=== PATIENT | female | born 1970 | race Caucasian/White ===

== ENCOUNTER → 2017-02-27 | Outpatient (CLI) | payer BC ==
--- NOTE | 2017-02-28 09:57 | MM ---
Reason for exam: screening (asymptomatic). Last mammogram was performed 2 years ago. History: Family history of breast cancer in paternal grandmother. Benign excisional biopsy of the right breast, 2010. Took hormonal contraceptives for 5 years. Physical Findings: A clinical breast exam by your physician is recommended on an annual basis and results should be correlated with mammographic findings. MG Screening Mammo w CAD Bilateral CC and MLO view(s) were taken. Prior study comparison: February 27, 2015, left breast MG work up mamm w CAD LT. February 16, 2015, bilateral MG screening mammo w CAD. The breast tissue is heterogeneously dense. This may lower the sensitivity of mammography. Finding: There is a 25 mm mass in the upper outer quadrant of the right breast. There is a chronic nodularity bilaterally. ASSESSMENT: Incomplete: need additional imaging evaluation, BI-RAD 0 RECOMMENDATION: Ultrasound of the right breast. [facility] will attempt to contact patient to return for ultrasound.
== END | disposition home or self-care (01) ==
LOC: RADMAMWWP 10:58
PROVIDERS: ATTEND Internal Medicine
DX: Z12.31 Encounter for screening mammogram for malignant neoplasm of breast (principal)

== ENCOUNTER → 2017-03-05 | Outpatient (CLI) | payer BC ==
--- NOTE | 2017-03-05 11:59 | P.STRESS ---
- Stress Test Note Stress Test Results/Findings: Exam Performed: stress test Exam Date: 03/05/17 Height: 5 ft 7 in Weight: 90.718 kg Protocol: adilene Stage: 3 Duration of Exercise: 9:00 Resting Heart Rate: 77 Resting Blood Pressure: 107/85 Maximum Achieved Heart Rate: 167 Maximum Achieved Blood Pressure: 195/96 85% PMHR: 149 100% PMHR: 175 METS: 10.1 Technologist Comment: Stress Test Results/Findings: Baseline rhythm is sinus mechanism, normal axis and intervals minor nonspecific T-wave changes. The patient exercised on Adilene protocol for 9 minutes reaching a peak rate of 167 bpm which is equal to 97% maximum predicted heart rate. The test was terminated secondary to fatigue there was no chest pain. EKG monitoring shows no acute ST segment changes, occasional PVCs were noted. Impression: 1. Average exercise tolerance. 2. Occasional PVCs. 3. Normal EKG response to exercise with no evidence of exercise induced ischemia.
--- NOTE | 2017-03-06 11:12 | ECHOF ---
Referral Reason:R07.89 chest pressure MEASUREMENTS -------- HEIGHT: 170.2 cm WEIGHT: 90.7 kg BP: 137/84 RVIDd: 2.5 cm (< 3.3) IVSd: 1.0 cm (0.6 - 1.1) LVIDd: 4.1 cm (3.9 - 5.3) LVPWd: 1.2 cm (0.6 - 1.1) IVSs: 1.0 cm LVIDs: 3.2 cm LVPWs: 1.1 cm LAESV Index (A-L): 16.30 ml/m Ao Diam: 2.7 cm (2.0 - 3.7) AV Cusp: 1.9 cm (1.5 - 2.6) LA Diam: 2.1 cm (2.7 - 3.8) MV EXCURSION: 20.499 mm (> 18.000) MV EF SLOPE: 44 mm/s (70 - 150) EPSS: 0.6 cm MV E Donavon: 0.52 m/s MV DecT: 249 ms MV A Don[place]on: 0.63 m/s MV E/A Ratio: 0.83 RAP: 5.00 mmHg RVSP: 18.65 mmHg FINDINGS -------- Sinus rhythm. This was a technically adequate study. The left ventricular size is normal. Overall left ventricular systolic function is normal with, an EF between 55 - 60 %. The right ventricle is normal in size and function. Normal LA size by volume 22+/-6 ml/m2. The right atrium is normal in size. The aortic valve is trileaflet, and appears structurally normal. No aortic stenosis or regurgitation. There is trace mitral regurgitation. Mild prolapse of the posterior mitral valve leaflet. Trace tricuspid regurgitation present. There is no evidence of pulmonary hypertension. The right ventricular systolic pressure, as measured by Doppler, is 18.65mmHg. There is no pulmonic regurgitation present. The aortic root size is normal. Normal inferior vena cava with normal inspiratory collapse consistent with estimated right atrial pressure of 5 mmHg. There is no pericardial effusion. CONCLUSIONS -------- 1. Sinus rhythm. 2. There is no pulmonic regurgitation present. 3. The aortic root size is normal. 4. There is no pericardial effusion. 5. This was a technically adequate study. 6. Overall left ventricular systolic function is normal with, an EF between 55 - 60 %. 7. Normal LA size by volume 22+/-6 ml/m2. 8. The aortic valve is trileaflet, and appears structurally normal. No aortic stenosis or regurgitation. 9. There is trace mitral regurgitation. 10. Mild prolapse of the posterior mitral valve leaflet. 11. Trace tricuspid regurgitation present. 12. There is no evidence of pulmonary hypertension. LAB INSTRUCTOR: Adarsh Bassett RDCS
== END | disposition home or self-care (01) ==
LOC: RADNMMAIN 10:57
PROVIDERS: ATTEND Internal Medicine
DX: I08.1 Rheumatic disorders of both mitral and tricuspid valves (principal); R07.89 Other chest pain
CPT/HCPCS: 93017; 93306

== ENCOUNTER → 2017-03-12 | Outpatient (CLI) | payer BC ==
--- NOTE | 2017-03-12 10:54 | USB ---
Reason for exam: additional evaluation requested from abnormal screening. History: Family history of breast cancer in paternal grandmother. Benign excisional biopsy of the right breast, 2010. Took hormonal contraceptives for 5 years. US Breast Workup Limited RT Right breast ultrasound demonstrates a 2.4 x 1.3 x 2.7cm oval, lobular, solid, hypoechoic lesion at 10 o'clock for which a biopsy is recommended, a 0.6 x 0.4 x 0.5cm oval, lobular, solid, hypoechoic lesion at 10 o'clock for which a biopsy is recommended and a 0.8 x 0.6 x 0.8cm oval, cystic lesion at 12 o'clock. These results were verbally communicated with the patient and result sheet given to the patient on 03/12/17. ASSESSMENT: Suspicious, BI-RAD 4 RECOMMENDATION: Ultrasound core biopsy of the right breast. (x 2) Called with mammographic findings and has scheduled an appointment for the patient for 03/17/17 at 9:[address] Coelho. PRELIMINARY REPORT CALLED AND FAXED TO DR. COELHO ON 03/12/17/TMP.
== END | disposition home or self-care (01) ==
LOC: RADUSWWP 09:46
PROVIDERS: ATTEND Internal Medicine
DX: R92.8 Other abnormal and inconclusive findings on diagnostic imaging of breast (principal)

== ENCOUNTER → 2017-03-26 | Day surgery (SDC) | payer BC ==
[2017-03-26 12:52] VITALS: RESP 16; BMI 31.3
[2017-03-26 14:38] VITALS: BP 125/72; PULSE 66; TEMP 98.2
--- NOTE | 2017-03-26 16:33 | USB ---
EXAMINATION TYPE: US biopsy breast VAD RT, US biopsy breast add'l VAD RT, Postbiopsy diagnostic mammo RT wo CAD DATE OF EXAM: 03/26/2017 CLINICAL HISTORY: 46-year-old female R92.8 Abnormal mammogram. Patient with a palpable lesion which was previously biopsied but shows gradually increasing size. Incidentally, second lesion was seen. TECHNIQUE: Ultrasound guided core biopsy of the right breast. COMPARISON: 03/26/2017 and 02/27/2017 FINDINGS: The procedure of ultrasound guided core biopsy was explained to the patient. Benefits, alternatives, and risks were discussed. An informed consent was then obtained. The patient was placed in supine positioning for imaging and for the procedure. The overlying skin was prepped and draped in usual sterile fashion. Lidocaine was used as anesthetic into the skin and subcutaneous tissue up to area of concern in the right breast. SITE A, 10:00 larger 2.5 cm lesion: Under ultrasound guidance, a 13-gauge vacuum -assisted mammotome Elite biopsy gun device was used to obtain 5 core samples. Following this, a coil clip was left in lesion. SITE B, 10:00 smaller 0.6 cm lesion: Under ultrasound guidance, a 13-gauge vacuum-assisted mammotome Elite biopsy gun device was used to obtain 4 core samples. Following this, a ribbon clip was left in lesion. The patient tolerated the procedure well without any immediate complication. The patient was kept in the radiology department for short stay after the procedure and then discharged home in stable condition. Post procedure mammogram shows clips in place. IMPRESSION: Successful, uncomplicated ultrasound guided core biopsy of area of concern in the right breast, 2 sites, full pathology results to follow. 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 B. BREAST, RIGHT, SITE B TEN O'CLOCK, CORE BIOPSY: FIBROCYSTIC CHANGES INCLUDING CYSTS, FIBROSIS AND FEATURES SUGGESTIVE OF A SCLEROSING LESION VERSUS PAPILLOMA. Recommendation Surgical consult of the right breast. Site A: Benign Site B: High Risk MTDD
== END ==
LOC: RADUSWWP 12:06
PROVIDERS: ATTEND Internal Medicine
DX: D24.1 Benign neoplasm of right breast (principal); R92.8 Other abnormal and inconclusive findings on diagnostic imaging of breast; N60.31 Fibrosclerosis of right breast; N64.89 Other specified disorders of breast
CPT/HCPCS: 88305; 19083; 19084; G0206; A4648; J2001

== ENCOUNTER → 2018-04-06 | Outpatient (CLI) | payer BC ==
--- NOTE | 2018-04-07 08:32 | MM ---
Reason for exam: additional evaluation requested from prior study. Last mammogram was performed 1 year ago. History: Patient has history of high-risk lesion on a previous biopsy at age 46. Family history of breast cancer in paternal grandmother. Benign US biopsy breast VAD RT of the right breast, March 26, 2017. High risk US biopsy breast add'l VAD RT of the right breast, March 26, 2017. Benign excisional biopsy of the right breast, 2010. Took hormonal contraceptives for 5 years. Physical Findings: Nurse did not find any significant physical abnormalities on exam. MG 3D Diag Mammo W/Cad JYOTSNA Bilateral CC and MLO view(s) were taken. Prior study comparison: March 26, 2017, right breast MG diagnostic mammo RT wo CAD. February 27, 2017, bilateral MG screening mammo w CAD. The breast tissue is heterogeneously dense. This may lower the sensitivity of mammography. There is a stable 20 mm oval circumscribed mass in the right upper outer breast consistent with known biopsy proven fibroadenoma. Previous mammotome biopsy x2 on the right breast. New distortion left upper outer quadrant middle depth. These results were verbally communicated with the patient and result sheet given to the patient on 04/06/18. ASSESSMENT: Incomplete: need additional imaging evaluation, BI-RAD 0 RECOMMENDATION: Ultrasound of the left breast.
--- NOTE | 2018-04-07 08:39 | USB ---
History: Patient has history of high-risk lesion on a previous biopsy at age 46. Family history of breast cancer in paternal grandmother. Benign US biopsy breast VAD RT of the right breast, March 26, 2017. High risk US biopsy breast add'l VAD RT of the right breast, March 26, 2017. Benign excisional biopsy of the right breast, 2010. Took hormonal contraceptives for 5 years. US Breast Limited LT Left limited breast ultrasound including focal area of concern, retroareolar and axilla demonstrates a 5 x 2 x 6 mm oval cystic lesion at 1 o'clock, a 4 x 3 x 4 mm cystic lesion at 2 o'clock. These results were verbally communicated with the patient and result sheet given to the patient on 04/06/18. ASSESSMENT: Suspicious, BI-RAD 4 RECOMMENDATION: Stereotactic core biopsy of the left breast. (May need 3-D stereo biopsy as lesion/distortion only seen on 3D image- this service is provided at [facility]) Called Dr. Coelho with mammographic findings and has scheduled an appointment for the patient for 04/23/18 at 3:[address] Coelho. PRELIMINARY REPORT CALLED AND FAXED TO DR. COELHO ON 04/06/18. [facility]
== END | disposition home or self-care (01) ==
LOC: RADMAMWWP 08:10
PROVIDERS: ATTEND Internal Medicine
DX: R92.8 Other abnormal and inconclusive findings on diagnostic imaging of breast (principal)
CPT/HCPCS: 77062; 77066